=== PATIENT | female | born 1945 | race Caucasian/White ===

== ENCOUNTER 2016-11-20 15:20 | Inpatient (IN) | payer OTHER ==
[~2016-11-20] VITALS: Ht 152.4 cm; Wt 59.0 kg
[~2016-11-20 15:20] MED LIST: IOHEXOL-350 100 ML BOTTLE ONE; SODIUM CHLORIDE 0.9% 10ML VIAL ONE
[2016-11-20] MEDS ORDERED: SODIUM CHLORIDE 0.9% 1,000 ML IV ONE (16:42)
[2016-11-20] MEDS ORDERED: ONDANSETRON HCL 4MG/2ML VIAL IV ONE (16:45)
[2016-11-20] MEDS ORDERED: ASPIRIN 81MG TABLET PO ONE (16:45)
[2016-11-20] MEDS ORDERED: METOCLOPRAMIDE HCL 10MG/2ML VIAL IV ONE (17:15)
[2016-11-20 17:18] LABS: BASOPHILS % 1.2 % (0.0-2.0); EOSINOPHILS % 0.6 % (0.0-5.0); HEMATOCRIT. 40.9 % (36.0-48.0); HEMOGLOBIN. 13.6 g/dL (12.0-16.0); LYMPHOCYTES % 12.8 % (20.0-50.0); MEAN CORPUSCULAR HEMOGLOBIN 29.7 pg (28.0-32.0); MEAN CORPUSCULAR VOLUME 89.3 fL (81.0-99.0); MEAN PLATELET VOLUME 7.8 fl (7.4-10.4); MONOCYTES % 10.9 % (2.0-8.0); NEUTROPHILS % 74.5 % (40.0-76.0); PLATELET 298 x1000/uL (130-400); RED BLOOD CELL COUNT 4.58 mill/uL (4.2-5.4); RED CELL DISTRIBUTION WIDTH 13.6 % (11.6-14.6)
[2016-11-20 17:25] LABS: CHLORIDE 101 mEq/L (98-107)
[2016-11-20 17:26] LABS: PROTHROMBIN TIME 10.6 sec (9.4-11.6)
[2016-11-20 17:30] LABS: CARBON DIOXIDE 27 mEq/L (21-32)
[2016-11-20 17:35] LABS: CREATINE KINASE MB FRACTION 0.8 ng/mL (0.5-3.6); TROPONIN I < 0.02 ng/mL (0.00-0.04)
[2016-11-20 17:46] LABS: D-DIMER 0.53 mg/L FEU (<0.50)
[2016-11-20 20:35] VITALS: BP 153/80
[2016-11-20 21:08] VITALS: BP 153/80
[2016-11-20] MEDS ORDERED: MORPHINE SULFATE 4 MG/ML CPJ (NOT FOR IM USE) IV PRN (21:58)
[2016-11-20] MEDS ORDERED: HYDROCODONE/ACETAMINOPHEN 5/325MG TABLET PO PRN (22:00)
[2016-11-20] MEDS ORDERED: SODIUM CHLORIDE 0.9% 1,000 ML IV SCH (22:00)
[2016-11-20] MEDS ORDERED: PNEUMOCOCCAL 23-VAL P-SAC VAC 0.5 ML IM ONE (22:00)
[2016-11-20] MEDS ORDERED: LORAZEPAM 2MG/ML CPJ IV PRN (22:00)
[2016-11-20] MEDS ORDERED: ONDANSETRON HCL 4MG/2ML VIAL IV PRN (22:00)
[2016-11-20] MEDS ORDERED: RANI300T4 PO (23:07)
[2016-11-20] MEDS ORDERED: INSNPH SUBCUT (23:07)
[2016-11-20] MEDS ORDERED: FISH GT (23:07)
[2016-11-20] MEDS ORDERED: PRED5TAB48 PO (23:07)
[2016-11-20] MEDS ORDERED: FLAX100032 PO (23:07)
[2016-11-20] MEDS ORDERED: UBID50TA3 PO (23:07)
[2016-11-20] MEDS ORDERED: CALC500T6 PO (23:07)
[2016-11-20] MEDS ORDERED: ASPI-1159 PO (23:07)
[2016-11-20] MEDS ORDERED: LATA2.5D2 EACHEYE (23:07)
[2016-11-20] MEDS ORDERED: ASCO-316 PO (23:07)
[2016-11-20] MEDS ORDERED: CHOL20004 PO (23:07)
[2016-11-20] MEDS ORDERED: VITA150T PO (23:07)
[2016-11-20] MEDS ORDERED: POLY17PO3 PO (23:07)
[2016-11-20] MEDS ORDERED: DEXTROSE 50% WATER 50ML SYRINGE IV PRN (23:15)
[2016-11-20 23:47] LABS: CREATINE KINASE 123 IU/L (26-192); CREATINE KINASE MB FRACTION 1.3 ng/mL (0.5-3.6); TROPONIN I < 0.02 ng/mL (0.00-0.04)
[2016-11-21] VITALS: BP 153/72
[2016-11-21 04:00] VITALS: BP 134/80
[2016-11-21] MEDS ORDERED: BLOOD SUGAR DIAGNOSTIC STRIP TEST SCH (06:45)
[2016-11-21 06:53] LABS: CARBON DIOXIDE 24 mEq/L (21-32); CHLORIDE 104 mEq/L (98-107); CREATINE KINASE 169 IU/L (26-192); PHOSPHORUS 2.6 mg/dL (2.5-4.9)
[2016-11-21 06:57] LABS: CREATINE KINASE MB FRACTION 0.9 ng/mL (0.5-3.6); TROPONIN I < 0.02 ng/mL (0.00-0.04)
[2016-11-21 07:02] LABS: HEMOGLOBIN. 13.3 g/dL (12.0-16.0); MEAN CORPUSCULAR HEMOGLOBIN 30.2 pg (28.0-32.0); MEAN CORPUSCULAR VOLUME 88.7 fL (81.0-99.0); PLATELET 286 x1000/uL (130-400); RED CELL DISTRIBUTION WIDTH 13.8 % (11.6-14.6)
[2016-11-21] MEDS ORDERED: INSULIN LISPRO 100 UNITS/ML SUBCUT SCH (07:15)
[2016-11-21 08:00] VITALS: BP 134/60
[2016-11-21] MEDS ORDERED: ASCORBIC ACID 500 MG TABLET PO SCH (09:00)
[2016-11-21] MEDS ORDERED: MEDICATION NOT ON FORMULARY EA (Cholecalciferol (Vitamin D) 2,000 UNIT) PO SCH (09:00)
[2016-11-21] MEDS ORDERED: MEDICATION NOT ON FORMULARY EA (Prednisone 5 MG) PO SCH (09:00)
[2016-11-21] MEDS ORDERED: POLYETHYLENE GLYCOL 3350 (17GM) 1 DOSE PACK PO SCH ×2 (09:00→09:04)
[2016-11-21] MEDS ORDERED: MEDICATION NOT ON FORMULARY EA (Ranitidine Hcl 300 MG) PO SCH (09:00)
[2016-11-21] MEDS ORDERED: ASCORBIC ACID 1000 MG PO SCH (09:00)
[2016-11-21] MEDS ORDERED: ASPIRIN 81MG EC TABLET PO SCH ×2 (09:00)
[2016-11-21] MEDS ORDERED: PREDNISONE 5MG TABLET PO SCH (09:00)
[2016-11-21] MEDS ORDERED: FAMOTIDINE 20MG TABLET PO SCH ×2 (09:00→17:00)
[2016-11-21] MEDS ORDERED: FISH OIL/OMEGA-3 FATTY ACIDS 1000MG CAPSULE GT SCH (09:00)
[2016-11-21] MEDS ORDERED: THIAMINE HCL 100MG TABLET PO SCH (09:00)
[2016-11-21] MEDS ORDERED: ENOXAPARIN 40MG/0.4ML SYR SUBCUT SCH (09:00)
[2016-11-21] MEDS ORDERED: CALCIUM CARBONATE 500MG TABLET CHEW PO SCH ×2 (09:00)
[2016-11-21] MEDS ORDERED: CHOLECALCIFEROL (D3) 1000 UNIT TABLET PO SCH (09:00)
[2016-11-21] MEDS ORDERED: FOLIC ACID 1MG TABLET PO SCH (09:00)
[2016-11-21] MEDS ORDERED: POTASSIUM CHLORIDE 20MEQ TABLET SR PO SCH (10:15)
[2016-11-21 10:57] VITALS: BP 148/76
[2016-11-21 11:13] LABS: CLARITY URINE CLEAR (CLEAR); COLOR URINE YELLOW (YELLOW); GLUCOSE URINE NEGATIVE (NEGATIVE); KETONES URINE NEGATIVE (NEGATIVE); LEUKOCYTE ESTERASE URINE 2+ (NEGATIVE); NITRITE URINE POSITIVE (NEGATIVE); OCCULT BLOOD URINE 1+ (NEGATIVE); PH URINE 6.5 (4.5-8.0); PROTEIN URINE NEGATIVE (NEGATIVE); UROBILINOGEN URINE 0.2 E.U./dL (0.2-1.0)
[2016-11-21 11:30] VITALS: BP 148/76
[2016-11-21 11:50] LABS: *AMPHETAMINES SCREEN URINE NEGATIVE (NEGATIVE); *BARBITURATES SCREEN URINE NEGATIVE (NEGATIVE); *BENZODIAZEPINES SCREEN URINE NEGATIVE (NEGATIVE); *COCAINE SCREEN URINE NEGATIVE (NEGATIVE); CANNABINOID URINE SCREEN NEGATIVE (NEGATIVE); METHADONE URINE SCREEN NEGATIVE (NEGATIVE); OPIATES URINE SCREEN NEGATIVE (NEGATIVE); PHENCYCLIDINE URINE SCREEN NEGATIVE (NEGATIVE)
[2016-11-21 12:00] VITALS: BP 159/71
[2016-11-21] MEDS ORDERED: LATANOPROST 0.005% OPHTH DROPS 2.5ML EACHEYE SCH (17:00)
[2016-11-21 20:17] LABS: PLATELET ESTIMATE NORMAL
== END 2016-11-21 12:00 | disposition home or self-care (01) | DRG 312 ==
LOC: ER 15:50 → 5WST 19:27 → CANRESERV 19:46 → ENRESERV 19:46
PROVIDERS: ADMIT Internal Medicine Nephrology; ATTEND Internal Medicine Nephrology
DX: R55 Syncope and collapse (principal); E11.9 Type 2 diabetes mellitus without complications; E44.1 Mild protein-calorie malnutrition; E86.9 Volume depletion, unspecified; I10 Essential (primary) hypertension; E87.6 Hypokalemia; Z90.710 Acquired absence of both cervix and uterus; T50.995A Adverse effect of other drugs, medicaments and biological substances, initial encounter; Y92.89 Other specified places as the place of occurrence of the external cause
CPT/HCPCS: 36415; 71010; 71275; 80048; 80053; 80305; 81001; 82550; 82553; 82962; 83735; 84100; 84484; 85025; 85379; 85610; 85730; 93005; 99285; A4216; C1893; J1650; J2405; J2765; J7030; J7512; Q9967